=== PATIENT | female | born 1935 ===

== ENCOUNTER 2020-11-06 16:24 | Emergency (ER) | payer SELFPAY ==
[~2020-11-06] VITALS: Ht 177.8 cm; Wt 71.9 kg
--- NOTE | 2020-11-06 16:45 | NUR ---
GUI FROM HOME FOR C/O UPPER ABD PAIN X24 HOURS. PT RECEIVED 4MG IV ZOFRAN AND 100MCG FENTANYL IV.
[2020-11-06 17:11] LABS: BASOPHILS % (AUTO) 0 % (0-1); EOSINOPHILS % (AUTO) 0 % (1-7); LYMPHOCYTES % (AUTO) 18 % (22-44); MEAN CORPUSCULAR HEMOGLOBIN 31.4 pg (27.0-34.8); MEAN CORPUSCULAR HGB CONC 33.3 g/dL (32.4-35.8); MEAN PLATELET VOLUME 7.8 fL (7.4-10.4); MONOCYTES % (AUTO) 5 % (2-9); NEUTROPHILS % (AUTO) 77 % (42-75); PLATELET COUNT 191 x10^3/uL (130-400); RED BLOOD COUNT 4.67 x10^6/uL (3.82-5.3); RED CELL DISTRIBUTION WIDTH 13.5 % (9.6-15.2)
[2020-11-06 17:12] LABS: MD NO
[2020-11-06 17:24] LABS: ALANINE AMINOTRANSFERASE 18 U/L (12-78); ALBUMIN 3.8 g/dL (3.4-5.0); ANION GAP 6 mmol/L (5-15); CALCIUM 9.3 mg/dL (8.5-10.1); CHLORIDE 110 mmol/L (98-107); CREATININE 1.03 mg/dL (0.55-1.02)
[2020-11-06 17:27] LABS: ALKALINE PHOSPHATASE 77 U/L (45-117); BILIRUBIN,TOTAL 0.6 mg/dL (0.2-1.0); TOTAL PROTEIN 6.8 g/dL (6.4-8.2)
--- NOTE | 2020-11-06 17:33 | NUR ---
Cl lobo in EDM - 11/06/20 at 1738 by KEN Pt arrived with bilat lower ankle swelling x1 week, pt states hx of cellulitis, connected to all monitors, ambulatory to room with steady gait, NADN. SHERRON DIAZ at bedside to discuss POC
--- NOTE | 2020-11-06 17:39 | NUR ---
Pt to CT
[2020-11-06 17:59] VITALS: BP 150/128
[2020-11-06] MEDS ORDERED: PROMETHAZINE 25 MG/ML, 1ML IM ONE (18:00)
[2020-11-06] MEDS ORDERED: MORPHINE SULFATE 4 MG/ML, 1ML IVPush ONE (18:00)
--- NOTE | 2020-11-06 18:02 | NUR ---
PT BACK FROM CT. STATES SHE FEELS SICK TO HER STOMACH.
[2020-11-06] MEDS ORDERED: OMNIPAQUE 350 MG/ML, 100ML BOTTLE ONE (18:03)
[2020-11-06] MEDS ORDERED: MORPHINE SULFATE 4 MG/ML, 1ML ONE (18:04)
[2020-11-06] MEDS ORDERED: PROMETHAZINE 25 MG/ML, 1ML ONE (18:04)
--- NOTE | 2020-11-06 18:27 | NUR ---
Pt medicated per MAR and cathed per protocol, pt tolerated well, no other requests at this time.
[2020-11-06 18:44] LABS: MICROSCOPIC AUTO
--- NOTE | 2020-11-06 19:06 | NUR ---
Dr Soto at bedside to discuss POC
[2020-11-06] MEDS ORDERED: FOSFOMYCIN 3 GM PACKET ONE (19:10)
--- NOTE | 2020-11-06 19:16 | NUR ---
CALL TO MICHELLE, PT'S SON AT [phone], PER MICHELLE HE IS ON HIS WAY TO PICK [place] UP.
[2020-11-06] MEDS ORDERED: FOSFOMYCIN 3 GM PACKET PO ONE (19:30)
== END 2020-11-06 19:28 | disposition home or self-care (01) ==
LOC: ED 16:54
DX: N30.00 Acute cystitis without hematuria (principal); K44.9 Diaphragmatic hernia without obstruction or gangrene; R10.84 Generalized abdominal pain; R11.2 Nausea with vomiting, unspecified; R00.1 Bradycardia, unspecified
CPT/HCPCS: 36415; 74177; 80053; 81001; 83690; 85025; 87077; 87086; 87186; 93005; 96372; 99285; J2550; Q9967

== ENCOUNTER 2021-01-24 08:02 | Emergency (ER) | payer SELFPAY ==
[~2021-01-24] VITALS: Ht 170.2 cm; Wt 60.0 kg
[2021-01-24] MEDS ORDERED: SODIUM CHLORIDE FLUSH 10ML SYR IVF ONE (08:30)
--- NOTE | 2021-01-24 08:30 | NUR ---
pt bran, presents to ed with c/o constipation since yesterday, denies nausea/vomitting. pt a&o, resps even and unlabored, vss, nadn.
[2021-01-24 08:41] LABS: BASOPHILS % (AUTO) 0 % (0-1); EOSINOPHILS % (AUTO) 1 % (1-7); LYMPHOCYTES % (AUTO) 8 % (22-44); MEAN CORPUSCULAR HEMOGLOBIN 31.5 pg (27.0-34.8); MEAN CORPUSCULAR HGB CONC 33.7 g/dL (32.4-35.8); MEAN PLATELET VOLUME 7.5 fL (7.4-10.4); MONOCYTES % (AUTO) 9 % (2-9); NEUTROPHILS % (AUTO) 82 % (42-75); PLATELET COUNT 200 x10^3/uL (130-400); RED BLOOD COUNT 4.65 x10^6/uL (3.82-5.3); RED CELL DISTRIBUTION WIDTH 13.7 % (9.6-15.2)
--- NOTE | 2021-01-24 08:46 | NUR ---
pt able to havce soft BM at this time on bedside commode
[2021-01-24 08:54] LABS: ALANINE AMINOTRANSFERASE 30 U/L (12-78); ALBUMIN 3.3 g/dL (3.4-5.0); ANION GAP 8 mmol/L (5-15); CALCIUM 9.3 mg/dL (8.5-10.1); CHLORIDE 107 mmol/L (98-107); CREATININE 1.02 mg/dL (0.55-1.02)
[2021-01-24 08:56] LABS: ALKALINE PHOSPHATASE 86 U/L (45-117); BILIRUBIN,TOTAL 0.8 mg/dL (0.2-1.0); TOTAL PROTEIN 7.4 g/dL (6.4-8.2)
--- NOTE | 2021-01-24 09:28 | NUR ---
CT WAITING FOR IV ACCESS
--- NOTE | 2021-01-24 10:10 | NUR ---
CT delayed due to difficult IV access, PIV placed at this time, CT called and notified.
--- NOTE | 2021-01-24 10:15 | NUR ---
pt to ct
--- NOTE | 2021-01-24 10:30 | NUR ---
pt back from ct, a&o, resps even and unlabored, vss, jackien.
[2021-01-24] MEDS ORDERED: OMNIPAQUE 350 MG/ML, 100ML BOTTLE ONE (10:38)
[2021-01-24 10:51] VITALS: BP 135/64
--- NOTE | 2021-01-24 10:55 | NUR ---
UA collected via str cath at this time and walked to lab. pt resting in bed, vss, nadn. awaiting lab results and dispo.
[2021-01-24 11:05] LABS: MICROSCOPIC NOT IND
--- NOTE | 2021-01-24 12:00 | NUR ---
FAUSTO Zaman AT [facility] TO DISCUSS poc
--- NOTE | 2021-01-24 12:35 | NUR ---
SPOKE TO SON MICHELLE VIA PHONE FOR UPDATE. PLAN TO DC PT BACK TO [facility] @ 1330 VIA [place].
--- NOTE | 2021-01-24 13:32 | NUR ---
PT TAKEN VIA [employer] AT THIS TIME, NADN, NO COMPLAINTS AT TIME OF DISCHARGE
== END 2021-01-24 13:34 | disposition home or self-care (01) ==
LOC: ED 09:48
DX: R10.32 Left lower quadrant pain (principal)
CPT/HCPCS: 36415; 74177; 80053; 81003; 83690; 85025; 99285; Q9967